=== PATIENT | male | born 1960 | race African-American/Black ===

== ENCOUNTER 2019-03-10 09:35 | Emergency (ER) | payer MEDICAID ==
[~2019-03-10] VITALS: Ht 188 cm; Wt 61.2 kg
[2019-03-10 09:39] VITALS: BP_SYST 152
[2019-03-10] MEDS ORDERED: CARV6.2554 PO (09:59)
[2019-03-10] MEDS ORDERED: LIP40 PO (09:59)
[2019-03-10] MEDS ORDERED: DRON400T PO (09:59)
[2019-03-10] MEDS ORDERED: ATRMDI INH (09:59)
[2019-03-10] MEDS ORDERED: SPIRIVA INH (09:59)
[2019-03-10] MEDS ORDERED: APIX5TAB4 PO (09:59)
[2019-03-10] MEDS ORDERED: ASA81 PO (09:59)
[2019-03-10] MEDS ORDERED: ACYCLOVIR IV 500 MG in D5W 100 ML IV ONE (10:00)
[2019-03-10] MEDS ORDERED: PREDNISONE 20 MG TABLET PO ONE (10:00)
[2019-03-10] MEDS ORDERED: NACL 0.9% 1,000 ML IV ONE ×2 (10:00→12:00)
[2019-03-10] MEDS ORDERED: MORPHINE 4 MG/ML INJ. SYRINGE IVP ONE ×2 (10:00→12:00)
[2019-03-10 10:30] LABS: BASOPHILS % (AUTO) 0.4 % (0.0-2.0); EOSINOPHILS # (AUTO) 0.2 K/uL (0.0-0.4); EOSINOPHILS % (AUTO) 3.3 % (0.0-4.0); HEMATOCRIT 45.2 % (36-54); HEMOGLOBIN 15.1 g/dL (14.0-18.0); LYMPHOCYTES # (AUTO) 0.8 K/uL (1.0-5.5); LYMPHOCYTES % (AUTO) 12.7 % (20.5-51.5); MEAN CORPUSCULAR HEMOGLOBIN 32 pg (27-31); MEAN CORPUSCULAR HGB CONC 34 % (32-36); MEAN CORPUSCULAR VOLUME 97 fL (79.0-98.0); MONOCYTES # (AUTO) 0.9 K/uL (0.0-1.0); MONOCYTES % (AUTO) 13.5 % (1.7-9.3); NEUTROPHILS # (AUTO) 4.6 K/uL (1.8-7.7); NEUTROPHILS % (AUTO) 70.1 % (40.0-70.0); PLATELET COUNT (AUTO) 144 K/uL (130-430); RED BLOOD CELL COUNT(AUTO) 4.69 MIL/uL (4.2-6.2); RED CELL DISTRIBUTION WIDTH 13.4 % (9.0-15.0); WHITE BLOOD COUNT (AUTO) 6.5 K/uL (4.8-10.8)
[2019-03-10] MEDS ORDERED: ACYCLOVIR SODIUM 50 MG/ML VIAL IV ONE (10:34)
[2019-03-10 10:38] LABS: BILIRUBIN,URINE 1+ (NEGATIVE); BLOOD, URINE 3+ (NEGATIVE); CLARITY/URINE CLEAR (CLEAR); COLOR,URINE YELLOW (YELLOW); GLUCOSE,URINE NEGATIVE (NEGATIVE); KETONES,URINE NEGATIVE (NEGATIVE); LEUKOCYTE ESTERASE ,URINE NEGATIVE (NEGATIVE); NITRITE, URINE NEGATIVE (NEGATIVE); PROTEIN URINE TRACE (NEGATIVE); UROBILINOGEN,URINE 0.2 (0.2-1.0)
[2019-03-10 10:45] LABS: ALBUMIN 3.8 g/dL (3.4-4.8); CALCIUM 9.3 mg/dL (8.4-11.0); CREATININE 1.33 mg/dL (0.55-1.30); POTASSIUM 4.4 mmol/L (3.5-5.1); TOTAL BILIRUBIN 0.5 mg/dL (0.0-1.0)
[2019-03-10] MEDS ORDERED: ACETAMINOPHEN 500 MG TABLET PO ONE (10:45)
[2019-03-10 11:06] LABS: BACTERIA,URINE FEW /HPF (None Seen); MUCUS,URINE 1+ /LPF (None Seen); WBC,URINE 0-3 /HPF (0-3)
[2019-03-10 12:59] VITALS: BP_SYST 138
== END 2019-03-10 12:58 | disposition home or self-care (01) ==
LOC: SED 09:35
DX: B02.8 Zoster with other complications (principal); I48.91 Unspecified atrial fibrillation; I10 Essential (primary) hypertension; Z79.82 Long term (current) use of aspirin; Z79.899 Other long term (current) drug therapy
CPT/HCPCS: 36415; 80053; 81000; 83605; 85025; 87040; 87086; 96365; 96375; 96376; 99283; J0133; J2270; J7030; J7512

== ENCOUNTER 2020-06-14 16:01 | Emergency (ER) | payer MEDICAID ==
[~2020-06-14] VITALS: Ht 188 cm; Wt 56.7 kg
[~2020-06-14 16:01] MED LIST: APIX5TAB4 PO; ASA81 PO; ATRMDI INH; CARV6.2554 PO; DRON400T PO; LIP40 PO; SPIRIVA INH
--- NOTE | 2020-06-14 16:08 | NUR ---
Patient to ER bed 02 to gown for evaluation. Side rails up.
--- NOTE | 2020-06-14 16:10 | NUR ---
Patient arrived in the ED c/o pain across chest with rapid heart beat and elevated BP that started yesterday. Patient was seen in [facility] last night and was discharged. Denied any shortness of breath. Denied any fevers, chills, nausea or vomiting. Patient is alert and oriented x4, respirations even and unlabored, speaking in full sentences, and ambulating with a steady gait. VSS, pain level 8/10. Informed of the approximate wait time. Instructed to notify ED staff for any changes in condition or worsening of symptoms while waiting to be seen by an ED provider. Patient verbalized understanding.
[2020-06-14 16:13] VITALS: BP_SYST 155
--- NOTE | 2020-06-14 16:15 | NUR ---
ER Dr. SALCEDO at bedside examining patient.
--- NOTE | 2020-06-14 16:20 | NUR ---
PT CALM, ALERT, PAIN MANAGEMENT IN PROGRESS, PT STATES CP TOLERABLE. RESP UNLABORED, SKIN WARM AND DRY. COMMUNICATES CLEARLY IN FULL COMPLETE SENTENCES.
[2020-06-14] MEDS ORDERED: PROCHLORPERAZINE EDISYLATE 10 MG/2 ML VIAL IVP ONE (16:30)
[2020-06-14] MEDS ORDERED: ASPIRIN 81 MG TAB.CHEW PO ONE (16:30)
[2020-06-14] MEDS ORDERED: NITROGLYCERIN 0.4 MG TAB.SUBL SL ONE ×2 (16:30→16:39)
[2020-06-14] MEDS ORDERED: MORPHINE 2 MG/ML INJ. SYRINGE IVP ONE (16:30)
[2020-06-14] MEDS ORDERED: ASPIRIN 81 MG TAB.CHEW ONE (16:39)
--- NOTE | 2020-06-14 16:45 | NUR ---
Patient to be transferred to [facility]. Is being transferred due to higher level of care. Receiving facility has accepting physician and available space. ER physician has signed transfer form. Patient or responsible green party has agreed to transfer and signed form. Patient belongings inventoried and will be sent with patient. Copy of nursing notes, lab reports, EKG, Physicians Orders and X-rays to be sent with patient. Report called to MD/MD at receiving facility. REPORT TO MEDICS
--- NOTE | 2020-06-14 16:45 | NUR ---
REPORT TO MEDICS, TRANSPORTED TO [facility] VIA AMBULANCE. PT CALM, ALERT, RESP UNLABORED, INFORMED AND AWARE OF TRANSFER
[2020-06-14 16:47] VITALS: BP_SYST 136
== END 2020-06-14 16:47 | disposition short-term general hospital (02) ==
LOC: SED 16:01
DX: R07.89 Other chest pain (principal); I10 Essential (primary) hypertension; I48.91 Unspecified atrial fibrillation; Z79.899 Other long term (current) drug therapy
CPT/HCPCS: 71045; 93005; 96374; 96375; 99285; J0780; J2270